=== PATIENT | female | born 1965 | race Asian ===

== ENCOUNTER 2019-03-15 06:11 | Emergency (ER) | payer OTHER ==
[2019-03-15] MEDS: DIPHTH/TET/ACEL PERTUSS (ADULT) 0.5 ML VIAL IM* (06:41)
== END 2019-03-15 07:24 | disposition home or self-care (01) ==
LOC: FTE 07:24
DX: S61.451A Open bite of right hand, initial encounter (principal); W55.01XA Bitten by cat, initial encounter; Y92.9 Unspecified place or not applicable; Z23 Encounter for immunization
CPT/HCPCS: 90471; 90715; 99283-25